=== PATIENT | male | born 1950 | race Caucasian/White ===

== ENCOUNTER 2021-04-08 19:19 | Emergency (ER) | payer MEDICARE, OTHER ==
[~2021-04-08] VITALS: Ht 185.4 cm; Wt 132.3 kg
--- NOTE | 2021-04-08 19:36 | PHYS DOC ---
Past Medical History Past Medical History: CAD, Hypertension Past Surgical History: Angioplasty, Cholecystectomy, Coronary Bypass Surgery Additional Past Surgical Histo: Carotid Endardectomy Alcohol Use: Rarely Drug Use: None General Adult HPI: HPI: Patient is a 70-year-old male presenting via EMS for code stroke. Last known normal was 1845 hrs. Patient reportedly lives home with son and does all activities of daily living. Was last seen by son walking to kitchen, made himself a plate of dinner and walked back and sat down at kitchen table. Son did the same and approximately 5 minutes later after returning to dinner table found his father aphasic with right facial droop and inability to move right arm and leg which concerned him prompting him to call EMS. Patient was found to be hemodynamically stable but transported to our facility for code stroke. On arrival, glucose was obtained and unremarkable. NIH stroke scale 26. Patient immediately sent to CT head imaging and concerning for acute left MCA ischemic infarct. Son later followed patient and was a poor historian, he reports patient had prior history of CAD and CABG and reports he thinks patient is on aspirin and/or Plavix. Also thinks he might be on other anticoagulants such as warfarin or DOAC but is unsure. He does not know primary care physician. He does not know home medication list Review of Systems: Review of Systems: Initially unobtainable due to acute state of patient Heart Score: C/O Chest Pain: No HEART Score for Chest Pain: HEART Score for Chest Pain Response (Comments) Value History Slighlty/Non-Suspicious 0 ECG Nonspecific Repolarizatio 1 Age > 65 2 Risk Factors >3 Risk Factors or Hx CAD 2 Troponin < Normal Limit 0 Total 5 Risk Factors: Risk Factors: DM, Current or recent (<one month) smoker, HTN, HLP, family history of CAD, obesity. Risk Scores: Score 0 - 3: 2.5% MACE over next 6 weeks - Discharge Home Score 4 - 6: 20.3% MACE over next 6 weeks - Admit for Clinical Observation Score 7 - 10: 72.7% MACE over next 6 weeks - Early Invasive Strategies Allergies: Allergies: Allergies Coded Allergies Type Severity Reaction Last Updated Verified morphine Allergy 12/29/13 Yes Physical Exam: PE: Constitutional: Pt is alert but not oriented to person place or time. Lethargic and aphasic but maintaining airway HEENT: Head: Normocephalic and atraumatic. TMs clear, no hemotympanum Conjunctivae are normal. Patient has spontaneous eye movements but has difficulty looking to right side past midline. Pupils are equal, round, and reactive to light. Oropharynx is clear and dry No hematomas or lacerations or abrasions to face or scalp OP clear, no blood, no malocclusion, dentition intact Nares clear, no nasal septal hematoma Midface stable Neck: C-spine midline nontender, no step-offs Cardiovascular: Normal rate, regular rhythm and normal heart sounds. Pulmonary/Chest: Effort normal and breath sounds normal. No respiratory distress. No wheezes. CTA bilaterally Abdominal: Soft. Bowel sounds are normal. Pt exhibits no distension. There is no tenderness. Musculoskeletal: No bony tenderness to extremities, no deformities, full ROM extremities Chest wall stable Pelvis stable and non-tender No vertebral TTP and spine without stepoffs Neurological: Pt is alert only, unable to obtain a full exam. Spontaneously moving left upper and lower extremity, no purposeful movements on right upper and right lower extremities with facial droop noted to right lower portion of face Motor function impaired of right upper and right lower extremity, sensory function grossly intact to pain only, downgoing toes bilaterally with stimulation Skin: Skin is warm and dry. No abrasions, no lacerations Psychiatric: Unable to fully assess Current Patient Data: Labs: Laboratory Tests Test 04/08/21 19:58 04/08/21 20:05 White Blood Count 11.9 x10^3/uL Red Blood Count 5.40 x10^6/uL Hemoglobin 16.5 g/dL Hematocrit 48.5 % Mean Corpuscular Volume 90 fL Mean Corpuscular Hemoglobin 31 pg Mean Corpuscular Hemoglobin Concent 34 g/dL Red Cell Distribution Width 14.4 % Platelet Count 241 x10^3/uL Neutrophils (%) (Auto) 62 % Lymphocytes (%) (Auto) 29 % Monocytes (%) (Auto) 5 % Eosinophils (%) (Auto) 2 % Basophils (%) (Auto) 1 % Neutrophils # (Auto) 7.4 x10^3/uL Lymphocytes # (Auto) 3.5 x10^3/uL Monocytes # (Auto) 0.6 x10^3/uL Eosinophils # (Auto) 0.2 x10^3/uL Basophils # (Auto) 0.1 x10^3/uL Prothrombin Time 13.0 SEC Prothromb Time International Ratio 1.0 Activated Partial Thromboplast Time 27 SEC Sodium Level 142 mmol/L Potassium Level 4.3 mmol/L Chloride Level 105 mmol/L Carbon Dioxide Level 27 mmol/L Anion Gap 10 14 mmol/L Blood Urea Nitrogen 10 mg/dL Creatinine 1.1 mg/dL Estimated GFR (Cockcroft-Gault) 66.6 Glucose Level 119 mg/dL 121 mg/dL Calcium Level 8.8 mg/dL Troponin I Quantitative < 0.017 ng/mL Bedside Hemoglobin 16.7 g/dL Bedside Hematocrit 49 % Bedside Sodium 140 mmol/L Bedside Potassium 4.2 mmol/L Bedside Chloride 102 mmol/L Bedside Total CO2 28 mmol/L Bedside Blood Urea Nitrogen 9 mg/dL Bedside Creatinine 1.1 mg/dL Bedside Ionized Calcium (Torin) 1.13 mmol/L Vital Signs: Vital Signs Date Time Temp Pulse Resp B/P (MAP) Pulse Ox O2 Delivery O2 Flow Rate FiO2 04/08/21 19:19 97.6 58 16 184/76 (112) 94 Room Air 97.6 Vital Signs Date Time Temp Pulse Resp B/P (MAP) Pulse Ox O2 Delivery O2 Flow Rate FiO2 04/08/21 19:19 97.6 58 16 184/76 (112) 94 Room Air 97.6 EKG: EKG: EKG ordered and interpretted by myself at 1931 hours Radiology/Procedures: Radiology/Procedures: CT HEAD WITHOUT CONTRAST History: Reason: CODE STROKE, RT ARM WEAKNESS / Spl. Instructions: / History: Comparison: None. Procedure: Axial images are obtained of the head from the skull base through the vertex without IV contrast. Findings: In the left temporal, frontal, and parietal lobes there is subtle loss of sumner- white matter differentiation with asymmetric sulcal effacement. There is a questionable dense left MCA sign. Findings suggest acute left MCA distribution infarct. The ventricles and sulci are normal for the patient's age. No midline shift, hemorrhage, extra-axial fluid collection, or obvious acute infarction is identified. Basilar cisterns are patent. Bone windows demonstrate no acute calvarial abnormality. The left frontal sinus is completely opacified. There is moderate mucosal th ickening of the bilateral ethmoid sinuses. There is moderate mucosal thickening of the bilateral maxillary sinuses. There are bilateral air-fluid levels in the maxillary sinuses.. Mastoid air cells are well aerated. IMPRESSION: 1. There are findings of acute left MCA distribution infarct. 2. No acute hemorrhage. 3. Paranasal sinus disease. Findings suggest acute bilateral maxillary sinusitis. ////////////////////////////////// CTA HEAD AND NECK W/WO CONTRAST Clinical Indication: Reason: RT UPPER AND LOWER PARALYSIS This CTA was performed in a separate imaging session from the head CT performed earlier. Comparison: CT head without contrast, earlier same day. Technique: Helical CT imaging from inferior to the aortic arch to the skull vertex is performed after 75 cc of Omnipaque [address] angiogram protocol. 3-D MIP reconstructions of the cervical carotid arteries and tetlin of [place] are performed. PQRS Compliance Statement - Stenosis calculations for CT, MR and conventional angiography are based upon measurement of the distal ICA diameter in accordance with the NASCET methodology. Stenosis calculations for carotid ultrasound studies are derived from validated velocity criteria which are known to correlate with the NASCET methodology. Findings: Aortic arch branches are patent. The right common carotid artery is patent. There is occlusion at the origin of the right internal carotid artery. Partial flow is reconstituted more distally. The left common carotid artery is patent. There is a patent stent of the left carotid bifurcation and proximal left ICA. The more distal cervical left internal carotid artery is patent. The cervical vertebral arteries are patent. The basilar artery is patent. The posterior circulation is intact. There are small caliber bilateral posterior communicating arteries. The cavernous right ICA appears to be occluded. There is atherosclerotic calcification. There is atherosclerotic calcification of the cavernous left ICA without high-grade stenosis. Right A1 segment is not visualized and may be occluded or aplastic. The anterior cerebral arteries are otherwise patent. The right middle cerebral arteries are patent. There is abrupt truncation of the left M1 segment compatible with thrombosis, image 257. More distal left MCA branches are mostly not opacified. No abnormal enhancement in the brain parenchyma. Paranasal sinus disease is redemonstrated. There is no cervical adenopathy. Upper lungs are without consolidation. Median sternotomy wires, probable CABG. Degenerative spondylosis of the cervical spine. The alignment is maintained. Patient is edentulous. IMPRESSION: 1. There is abrupt truncation of the left M1 segment compatible with thrombosis and acute infarct. This is concordant with the findings on noncontrast CT head. 2. 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 3. There is patent stent of the left carotid bifurcation and proximal left ICA. 4. The right A1 segment is occluded or aplastic. 5. There is small caliber bilateral posterior communicating arteries. The cervical vertebral arteries and posterior circulation are intact. Electronically signed by: Mohit Fairbanks MD (04/08/2021 8:49 PM) [facility] Course & Med Decision Making: Course & Med Decision Making [id number] glucose unremarkable, vital signs stable. History initially unobtainable. Code stroke called and patient immediately transported to CT scanner for evaluation. NIH stroke scale obtained and 26 Initial read confirmed by radiologist concerning for left MCA ischemic infarct. Son came to bedside, poor historian and there was great debate whether patient was on anticoagulant which would warrant complete contraindication against TPA Contacted [facility] neurologist and reviewed case. Agreed no indication for TPA until it is known that patient is for sure not on an anticoagulant. Recommended that I contact [facility] stroke hotline as patient would benefit from higher acuity of care Time was spent identifying primary care physician, pharmacies were called without luck in obtaining patient's medication list. CTA head and neck obtained in the meantime showing left M1 segment compatible with thrombosis and acute infarct [facility] contacted after findings above, during this call, son was able to produce medication list and not on DOAC or any other anticoagulant. Joint decision be tween myself, [facility] attending and patient's son to administer TPA with immediate transfer to [facility] for higher acuity of care under Dr. Macedo Risks and benefits of TPA were discussed at length with son who agreed the benefits of administering TPA given current clinical situation outweighed the risks. TPA administered at 2130 hrs. patient had 1-1 nursing staff supervision without concerning findings prior to EMS transport to [facility] All questions and concerns son had were addressed prior to EMS transport Critical Care Time This patient required critical care. Due to the fact that the patient required a significant amount of one on one physician - patient contact time, ordering and review of studies, arranging urgent treatment with development of a management plan, evaluation of patients response to treatment with frequent reassessments, and discussions with other providers this patient required 60 minutes of critical care time. Critical care time was indicated due to the inherent instability and/or potential for instability in this patient. The critical care time that is allocated to this patient is above and beyond any time spent on any other billable procedures performed on this patient. Evi Disclaimer: Evi Disclaimer: This electronic medical record was generated, in whole or in part, using a voice recognition dictation system. NIHSS Stroke Scale NIH Stroke Scale: NIH Stroke Scale Response (Comments) Value Level of Consciousness: 0 Alert/Responsive 0 LOC Questions: 2 Answers neither correct 2 LOC Commands: 2 Perform neither task 2 Best Gaze: 1 Partial gaze palsy 1 Visual: 0 No visual loss 0 Facial Palsy: 1 Minor paralysis 1 Motor - Left Arm 2 Some effort 2 Motor - Right Arm 4 No movement 4 Motor - Left Leg 2 Some effort 2 Motor: Right Leg 4 No movement 4 Limb Ataxia: 1 One limb 1 Sensory: 0 No loss 0 Best Language: 3 Mute 3 Dysathria: 2 Severe 2 Extinction and Inattention: 2 Extinction 2 Total 26 Departure Departure Impression: Primary Impression: Left acute arterial ischemic stroke, MCA (middle cerebral artery) Disposition: 02 SHORT TERM HOSPITAL ([facility]) Admitting Physician: BRICE (DR MACEDO) Condition: STABLE OKCE DO April 08, 2021 19:36
--- NOTE | 2021-04-08 19:41 | RAD ---
PQRS Compliance Statement: One or more of the following individualized dose reduction techniques were utilized for this examinat ion: 1. Automated exposure control 2. Adjustment of the mA and/or kV according to patient size 3. Use of iterative reconstruction technique CT HEAD WITHOUT CONTRAST History: Reason: CODE STROKE, RT ARM WEAKNESS / Spl. Instructions: / History: Comparison: None. Procedure: Axial images are obtained of the head from the skull base through the vertex without IV co ntrast. Findings: In the left temporal, frontal, and parietal lobes there is subtle loss of sumner-white matter different iation with asymmetric sulcal effacement. There is a questionable dense left MCA sign. Findings sugge st acute left MCA distribution infarct. The ventricles and sulci are normal for the patient's age. No midline shift, hemorrhage, extra-axial fluid collection, or obvious acute infarction is identified . Basilar cisterns are patent. Bone windows demonstrate no acute calvarial abnormality. The left frontal sinus is completely opacified. There is moderate mucosal thickening of the bilateral ethmoid sinuses. There is moderate mucosal thickening of the bilateral maxillary sinuses. There are bilateral air-fluid levels in the maxillary sinuses.. Mastoid air cells are well aerated. IMPRESSION: 1. There are findings of acute left MCA distribution infarct. 2. No acute hemorrhage. 3. Paranasal sinus disease. Findings suggest acute bilateral maxillary sinusitis. FOR INTERNAL CODING PURPOSES Critical result: Findings discussed with in the ED at 04/08/2021 7:34 PM. RESULT CODE: (C) Electronically signed by: Mohit Fairbanks MD (04/08/2021 7:39 PM) [facility]
--- NOTE | 2021-04-08 19:56 | RAD ---
EXAM: Chest, single view. HISTORY: Code stroke. COMPARISON: None. FINDINGS: A frontal view of the chest is obtained. There is no infiltrate, pleural effusion or pneumo thorax. The heart is normal in size. There are findings consistent with CABG. IMPRESSION: No acute pulmonary finding. Electronically signed by: Genia Tamayo MD (04/08/2021 7:54 PM) [facility]
[2021-04-08 20:09] LABS: CREATININE ISTAT 1.1 mg/dL (0.5-1.4); HEMOGLOBIN ISTAT 16.7 g/dL (14-18); ION CA ISTAT 1.13 mmol/L (1.13-1.32); POTASSIUM ISTAT 4.2 mmol/L (3.5-5.0)
[2021-04-08 20:12] LABS: BASO # 0.1 x10^3/uL (0.0-0.2); BASO % 1 % (0-3); EOS # 0.2 x10^3/uL (0.0-0.7); EOS % 2 % (0-3); HEMATOCRIT 48.5 % (39.0-53.0); HEMOGLOBIN 16.5 g/dL (13.0-17.5); LYMPH # 3.5 x10^3/uL (1.0-4.8); LYMPH % 29 % (24-48); MEAN CORPUSCULAR HEMOGLOBIN 31 pg (25-35); MEAN CORPUSCULAR HGB CONC 34 g/dL (31-37); MEAN CORPUSCULAR VOLUME 90 fL (79-100); MONO # 0.6 x10^3/uL (0.0-1.1); MONO % 5 % (0-9); NEUT # 7.4 x10^3/uL (1.8-7.7); NEUT % 62 % (31-73); PLATELET COUNT 241 x10^3/uL (140-400); RED CELL DISTRIBUTION WIDTH 14.4 % (11.5-14.5); WHITE BLOOD COUNT 11.9 x10^3/uL (4.0-11.0)
[2021-04-08 20:22] LABS: CALCIUM 8.8 mg/dL (8.5-10.1); CREATININE 1.1 mg/dL (0.7-1.3); GFR 66.6; POTASSIUM 4.3 mmol/L (3.5-5.1)
[2021-04-08] MEDS ORDERED: IOHEXOL 350 MG/ML 100 ML VIAL. IV ONE (20:45)
[2021-04-08] MEDS ORDERED: CONTRAST GIVEN. MC PRN (20:45)
--- NOTE | 2021-04-08 20:51 | RAD ---
PQRS Compliance Statement: One or more of the following individualized dose reduction techniques were utilized for this examinat ion: 1. Automated exposure control 2. Adjustment of the mA and/or kV according to patient size 3. Use of iterative reconstruction technique CTA HEAD AND NECK W/WO CONTRAST Clinical Indication: Reason: RT UPPER AND LOWER PARALYSIS This CTA was performed in a separate imagi ng session from the head CT performed earlier. Comparison: CT head without contrast, earlier same day. Technique: Helical CT imaging from inferior to the aortic arch to the skull vertex is performed after 75 cc of Omnipaque [address] angiogram protocol. 3-D MIP reconstructions of the cervi alana carotid arteries and standing rock of [place] are performed. PQRS Compliance Statement - Stenosis calculations for CT, MR and conventional angiography are based u harvinder measurement of the distal ICA diameter in accordance with the NASCET methodology. Stenosis calcu lations for carotid ultrasound studies are derived from validated velocity criteria which are known t o correlate with the NASCET methodology. Findings: Aortic arch branches are patent. The right common carotid artery is patent. There is occlusion at the origin of the right internal carotid artery. Partial flow is reconstituted more distally. The left common carotid artery is patent. There is a patent stent of the left carotid bifurcation and proximal left ICA. The more distal cervical left internal carotid artery is patent. The cervical vertebral arteries are patent. The basilar artery is patent. The posterior circulation i s intact. There are small caliber bilateral posterior communicating arteries. The cavernous right ICA appears to be occluded. There is atherosclerotic calcification. There is athe rosclerotic calcification of the cavernous left ICA without high-grade stenosis. Right A1 segment is not visualized and may be occluded or aplastic. The anterior cerebral arteries are otherwise patent. The right middle cerebral arteries are patent. There is abrupt truncation of the left M1 segment comp atible with thrombosis, image 257. More distal left MCA branches are mostly not opacified. No abnormal enhancement in the brain parenchyma. Paranasal sinus disease is redemonstrated. There is no cervical adenopathy. Upper lungs are without consolidation. Median sternotomy wires, probable CABG . Degenerative spondylosis of the cervical spine. The alignment is maintained. Patient is edentulous. IMPRESSION: 1. There is abrupt truncation of the left M1 segment compatible with thrombosis and acute infarct. T his is concordant with the findings on noncontrast CT head. 2. 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 3. There is patent stent of the left carotid bifurcation and proximal left ICA. 4. The right A1 segment is occluded or aplastic. 5. There is small caliber bilateral posterior communicating arteries. The cervical vertebral arterie s and posterior circulation are intact. Electronically signed by: Mohit Fairbanks MD (04/08/2021 8:49 PM) [facility]
[2021-04-08] MEDS ORDERED: LABETALOL 20 MG/4 ML DISP.SYRIN. IVP PRN (21:00)
[2021-04-08] MEDS ORDERED: ALTEPLASE 81 MG IV ONE (21:30)
[2021-04-08] MEDS ORDERED: ALTEPLASE 9 MG IV ONE (21:30)
[2021-04-08 21:46] VITALS: BP 179/74
[2021-04-08] MEDS ORDERED: IV NORMAL SALINE 50ML 50 ML IV ONE (22:30)
== END 2021-04-08 22:02 | disposition short-term general hospital (02) ==
LOC: ER 19:19
DX: I63.512 Cerebral infarction due to unspecified occlusion or stenosis of left middle cerebral artery (principal); I10 Essential (primary) hypertension; I25.10 Atherosclerotic heart disease of native coronary artery without angina pectoris; Z90.49 Acquired absence of other specified parts of digestive tract; Z95.5 Presence of coronary angioplasty implant and graft; Z95.1 Presence of aortocoronary bypass graft; Z88.5 Allergy status to narcotic agent
CPT/HCPCS: 36415; 37195; 70450; 70496; 70498; 71045; 80047; 80048; 82962; 84484; 85025; 85610; 85730; 93005; 99291; J2997; Q9967